=== PATIENT | female | born 1990 | race Caucasian/White ===

== ENCOUNTER 2019-10-21 14:50 | Inpatient (IN) | payer BC, MEDICAID ==
[~2019-10-21] VITALS: Ht 175.3 cm; Wt 116.6 kg
[2019-10-21 16:20] LABS: APPEARANCE CLEAR (CLEAR); BASOPHILS 0.1 % (0-2); BILIRUBIN NEGATIVE (NEGATIVE); COLOR YELLOW (YELLOW); EOSINOPHILS 0.9 % (0-7); GLUCOSE NEGATIVE (NEGATIVE); HEMATOCRIT 37.1 % (36.0-48.0); HEMOGLOBIN 11.8 g/dL (12-16); IMMATURE GRANULOCYTES 0.4 % (0-5); KETONE NEGATIVE (NEGATIVE); LYMPHOCYTES 14.3 % (15-50); MCH 26.7 pg (26.0-34.0); MCHC 31.8 g/dL (31.0-37.0); MCV 83.9 fL (80.0-100.0); MEAN PLATELET VOLUME 11.3 fL (7.4-10.4); MONOCYTES 7.4 % (2-11); NEUTROPHILS 76.9 % (40-80); NITRITE NEGATIVE (NEGATIVE); PLATELET COUNT 252 10x3/uL (130-400); PROTEIN NEGATIVE (NEGATIVE); RBC 4.42 10x6/uL (4.00-5.40); RDW 14.2 % (11.5-14.5); UROBILINOGEN NORMAL (NORMAL); WBC 7.5 10x3/uL (4.8-10.8)
[2019-10-21 16:22] LABS: CALC OSMOLALITY 274 mosm/kg (275-300); CALCIUM 8.4 mg/dL (8.5-10.1); CARBON DIOXIDE 24.9 mmol/L (21.0-32.0); CHLORIDE - SERUM 105 mmol/L (98-107); CREATININE - SERUM 0.8 mg/dL (0.6-1.3); GLUCOSE 99 mg/dL (74-106); POTASSIUM - SERUM 3.6 mmol/L (3.5-5.1); SODIUM 138 mmol/L (136-145); UREA NITROGEN 9 mg/dL (7-18); eGFR NON AFRICAN AMERICAN 89 mL/min (90-120)
[2019-10-21 16:28] LABS: ALBUMIN 2.1 g/dL (3.4-5.0); ALKALINE PHOSPHATASE 243 U/L (46-116); ALT (SGPT) 18 U/L (10-68); BILIRUBIN - DIRECT 0.06 mg/dL (0.00-0.30); BILIRUBIN - INDIRECT 0.26 mg/dL (0.00-1.00); BILIRUBIN - TOTAL 0.32 mg/dL (0.2-1.3); PROTEIN - SERUM 6.5 g/dL (6.4-8.2); URIC ACID 3.4 mg/dL (2.6-7.2)
[2019-10-21 16:34] VITALS: BP 117/78; Ht 175.3 cm; Wt 116.6 kg
[2019-10-22 07:17] VITALS: BP 107/58
--- NOTE | 2019-10-22 07:17 | NUR ---
RECEIVED PT SITTING UP IN BED. CARING FOR INFANT. VSS. HRRR WITHOUT AUDIBLE MURMUR. BBS CLEAR. BS X 4. ABDOMEN SOFT/NON-DISTENDED. FUNDUS FIRM AT U/U. RUBRA LOCHIA MOD AMT. NO CLOTS EXPRESSED. NEG HOMANS' SIGN. PPP. MILD, NON-PITTING EDEMA NOTED. SL TO RIGHT HAND CLEAR. PT DENIES PAIN. REGULAR DIET SERVED. SR UP X 2. CALL LIGHT IN REACH.
--- NOTE | 2019-10-22 08:12 | NUR ---
PT OOB AND AMB TO BR. VOIDS UNMEASURED AMT OF BLOOD-TINGED URINE. PERICARE DONE PER PT WITH BETADINE, WATER AND PERIBOTTLE. PANTIES AND PADS ON. GOWN CHANGED. PT AMB BACK TO BED. AGUSTIN ACTIVITY WELL.
--- NOTE | 2019-10-22 08:16 | NUR ---
PT C/O ABDOMINAL CRAMPING OF "4" ON 0-10 PAIN SCALE. MOTRIN 600 MG GIVEN PO ORDERED. PT INSTRUCTED ON MED. VERBALIZES UNDERSTANDING.
--- NOTE | 2019-10-22 09:00 | NUR ---
PT SITTING UP IN BED. STATES IBUPROFEN RELIEVED CRAMPING. DENIES C/O OR NEEDS.
--- NOTE | 2019-10-22 10:30 | NUR ---
PT SITTING UP IN BED. VISITS WITH FAMILY. DENIES C/O OR NEEDS.
--- NOTE | 2019-10-22 12:34 | NUR ---
PT OOB AND AMB TO BR. VOIDS 800 ML OF BLOOD-TINGED URINE. PERICARE DONE PER PT. PAD CHANGED. MOD CANDIDO VALLES NOTED. PT AMB BACK TO BED. REGULAR DIET SERVED. DENIES NEEDS OR C/O.
[2019-10-22 14:09] VITALS: BP 125/58
[2019-10-22 14:15] LABS: BASOPHILS 0.2 % (0-2); EOSINOPHILS 0.7 % (0-7); HEMATOCRIT 33.2 % (36.0-48.0); HEMOGLOBIN 10.5 g/dL (12-16); IMMATURE GRANULOCYTES 0.2 % (0-5); MCH 26.4 pg (26.0-34.0); MCHC 31.6 g/dL (31.0-37.0); MCV 83.4 fL (80.0-100.0); MEAN PLATELET VOLUME 10.9 fL (7.4-10.4); MONOCYTES 6.2 % (2-11); NEUTROPHILS 81.7 % (40-80); PLATELET COUNT 218 10x3/uL (130-400); RBC 3.98 10x6/uL (4.00-5.40); RDW 14.4 % (11.5-14.5)
[2019-10-22 14:18] LABS: WBC 11.2 10x3/uL (4.8-10.8)
--- NOTE | 2019-10-22 15:20 | NUR ---
PT UP TO SHOWER. LINENS PROVIDED.
--- NOTE | 2019-10-22 15:50 | NUR ---
PT LICENSED SALES PRODUCER LIGHT. STATES FINISHED WITH SHOWER. THIS NURSE TO ROOM 700 ML OF BLOOD-TINGED URINE NOTED IN SPECIPAN. PT PREPARES FOR TRANSFER.
--- NOTE | 2019-10-22 16:00 | NUR ---
PT TRANSFERED VIA AMBULATORY TO ROOM 1220. PT ORIENTED TO ROOM, BED, AND CALL LIGHT. SR UP X 2. CALL LIGHT IN REACH.
--- NOTE | 2019-10-22 16:05 | NUR ---
PT ORIENTED TO ROOM. UP AND ABOUT. STATES IS FINE- DENIES NEEDS.
--- NOTE | 2019-10-22 19:20 | NUR ---
BEDSIDE REPORT WAS RECEIVED FROM FÁTIMA THOMAS. LET PT KNOW I WOULD BE HER NURSE PONCHO. FOB IS HOLDING THE BABY. EXPLAINED THAT I WOULD BE BACK SOON TO DO HER SHIFT ASSESSMENT.
--- NOTE | 2019-10-22 20:00 | NUR ---
PT IS FEEDING BABY. NO C/O AT THIS TIME. SHE STATES SHE HAS SOME LIGHT CRAMPING THAT DOES NOT REQUIRE MEDICATION. HER HEART SOUNDS ARE NORMAL. HER LUNGS ARE CLEAR AND BOWEL SOUNDS PRESENT. PT fUNDUS IS FIRM. LOCHIA IS SMALL - MODERATE. PT IS AMBULATING IN HER ROOM. PT IS VOIDING WELL. BABY IS BOTTLE FED AND BOTH PARENTS HAVE BEEN OBSERVED FEEDING THE BABY. PT HAS NO NEEDS AT THIS TIME.
[2019-10-22 20:55] VITALS: BP 121/68
--- NOTE | 2019-10-22 21:00 | NUR ---
PT CONT. TO SLEEP WITHOUT C/O OR NEEDS
--- NOTE | 2019-10-22 22:07 | NUR ---
PT AND ARE BOTH SLEEPING. NO C/O OR NEEDS AT THIS TIME.
--- NOTE | 2019-10-23 | NUR ---
PT AND FAMILY SLEEPING SOUNDLY. NO C/O OR NEEDS.
--- NOTE | 2019-10-23 02:00 | NUR ---
PT WAS AWAKE WHEN I ROUNDED ON HER. SHE HAS NO C/O. SHE ASKED FOR A GLASS OF WATER WHICH WAS SERVED TO HER.
--- NOTE | 2019-10-23 04:00 | NUR ---
PT IS AWAKE FEEDING BABY NOW. SHE STATES SHE HAS NO PAIN OR NEEDS.
--- NOTE | 2019-10-23 06:08 | NUR ---
SLEEPING AT THIS TIME. NO C/O OR NEEDS.
--- NOTE | 2019-10-23 07:18 | NUR ---
RECEIVED SHIFT REPORT FROM JORJE VELEZ RN, INFORMED PT THAT I WILL BE BACK SHORTLY TO DO ASSESSMENT, PT VERBALIZES UNDERSTANDING, DENIES NEEDS AT THIS TIME, INFANT IN OPEN CRIB CART AT BEDSIDE
--- NOTE | 2019-10-23 07:30 | NUR ---
DR BAUMAN ON UNIT, ORDERS RECEIVED TO DISCHARGE PT WITH INFANT
[2019-10-23 08:00] VITALS: BP 130/70
--- NOTE | 2019-10-23 08:00 | NUR ---
ASSESSMENT PER FLOW SHEET, VS OBTAINED, SALINE LOCK IN RIGHT HAND INTACT WITH NO REDNESS OR EDEMA, FF, ML, U/2, PT REPORTS FLATUS, BM THIS MORNING, VOIDING WITH NO DIFFICULTY AND LIGHT BLEEDING WITH NO CLOTS, PT DENIES PAIN, REQUESTED AND PROVIDED PACIFIER FOR , PT DENIES FURTHER NEEDS, BED IN LOW POSITION, SIDE RAILS X 2, CALL LIGHT IN REACH
[2019-10-23 08:10] LABS: RAPID PLASMA REAGIN Non Reactive (Non Reactive)
--- NOTE | 2019-10-23 08:30 | NUR ---
PT HOLDING INFANT, BOTTLE PROVIDED, PT DENIES FURTHER NEEDS
--- NOTE | 2019-10-23 09:25 | NUR ---
PT TALKING ON CELL PHONE, DENIES NEEDS OR PAIN AT THIS TIME
--- NOTE | 2019-10-23 10:35 | NUR ---
PT VISITING WITH FOB, IN OPEN CRIB CART AT BEDSIDE, PT PROVIDED FLU VACCINE INFORMATION, DENIES QUESTIONS
--- NOTE | 2019-10-23 11:01 | NUR ---
PT VERBALIZES UNDERSTANDING OF FLU VACCINE, ADM TO RIGHT DELTOID, SALINE LOCK REMOVED, TIP INTACT, INFORMED PT THAT I WILL GET DISCHARGE PAPER WORK TOGETHER AND BE BACK SHORTLY, PT VERBALIZES UNDERSTANDING
--- NOTE | 2019-10-23 12:15 | NUR ---
SHIFT REPORT TO LOUANN ESTEVES RN
--- NOTE | 2019-10-23 13:10 | NUR ---
THIS RN TO BEDSIDE FOR DISCHARGE TEACHING TO INCLUDE PP DEPRESSION, VAGINAL DELIVERY POST CARE, POST DELIVERY WARNING SIGNS AND RECOMMENDED PO MEDICATION FOR C/O PAIN. PT HAS NO PRESCRIPTIONS ORDERED. PT INSTRUCTED TO CALL [facility] ON FRIDAY MORNING TO SCHEDULE A FOLLOW APPT W/DR RIZVI. COPIES OF EDUCATION/INSTRUCTIONS PROVIDED. DISCHARGE PAPERS SIGNED ANDCOPY PROVIDED TO PT. PT DISCHARGED HOME AT THIS TIME. AMBULATORY OFF UNIT PER REQUEST W/SPOUSE AND INFANT IN CARSEAT CARRIER.
== END 2019-10-23 13:15 | disposition home or self-care (01) | DRG 807 ==
LOC: D.LD 14:50 → D.WS 10-22 16:00
PROVIDERS: ADMIT Student in an Organized Health Care Education/Training Program; ATTEND Student in an Organized Health Care Education/Training Program
PROC: 3E033VJ Introduction of Other Hormone into Peripheral Vein, Percutaneous Approach (ICD-10-PCS; 2019-10-21)
PROC: 10E0XZZ Delivery of Products of Conception, External Approach (ICD-10-PCS; principal; 2019-10-22)
PROC: 0KQM0ZZ Repair Perineum Muscle, Open Approach (ICD-10-PCS; 2019-10-22)
DX: O14.04 Mild to moderate pre-eclampsia, complicating childbirth (principal); Z37.0 Single live birth; Z3A.38 38 weeks gestation of pregnancy; O70.1 Second degree perineal laceration during delivery